=== PATIENT | female | born 1975 | race Caucasian/White ===

== ENCOUNTER 2021-09-08 20:00 | Emergency (ER) | payer BC, OTHER ==
[2021-09-08 20:32] LABS: Basophils % 0.3 % (0-1.3); Hematocrit 40.6 % (36.0-45.0); Lymphocytes % 42.1 % (15.3-44.8); MPV 8.6 fL (7.6-11.3); RBC Red Blood Cell Count 4.58 M/uL (3.86-4.86)
[2021-09-08 20:45] LABS: Potassium 3.8 mmol/L (3.5-5.1)
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
--- NOTE | 2021-09-08 21:10 | RAD REPORT ---
EXAM DESCRIPTION: Melly Single View09/08/2021 8:26 pm CLINICAL HISTORY: Chest pain COMPARISON: 2012 FINDINGS: The lungs appear clear of acute infiltrate. The heart is normal size IMPRESSION: No acute abnormalities displayed
[2021-09-08] MEDS ORDERED: HYDROMORPHONE HCL 1 MG/ML INJ ONE ×2 (21:20→22:33)
[2021-09-08] MEDS ORDERED: ONDANSETRON 4 MG/2 ML VIAL ONE ×2 (21:20→22:33)
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
[2021-09-08 23:10] VITALS: O2SAT 99
[2021-09-08 23:13] VITALS: BP 145/89
== END 2021-09-08 23:06 | disposition home or self-care (01) ==
LOC: ER 20:00
DX: S30.1XXA Contusion of abdominal wall, initial encounter (principal); S40.011A Contusion of right shoulder, initial encounter; S80.12XA Contusion of left lower leg, initial encounter; V59.50XA Passenger in pick-up truck or van injured in collision with unspecified motor vehicles in traffic accident, initial encounter; I10 Essential (primary) hypertension; Z88.8 Allergy status to other drugs, medicaments and biological substances
CPT/HCPCS: 85025; 80048; 36415; 86900; 86850; 82565; 86901; 70450; 72125; 71260; 74177; 71045; 73590; 96375; 96374; 99284; Q9967; J1170 ×2; J2405 ×2